=== PATIENT | female | born 1980 | race Caucasian/White ===

== ENCOUNTER → 2017-09-30 13:33 | Outpatient (CLI) | payer OTHER, SELFPAY ==
[2017-10-06 08:28] LABS: HPV Reflexed? NOT INDICATED
== END ==
PROVIDERS: Visit Provider Obstetrics & Gynecology
DX: Z12.4 Encounter for screening for malignant neoplasm of cervix (principal)
CPT/HCPCS: 88175; G0145

== ENCOUNTER → 2019-03-30 13:41 | Outpatient (CLI) | payer OTHER, SELFPAY ==
[2019-04-04 07:07] LABS: Age Gdln ACOG Testing 30-65 (.)
[2019-04-04 09:47] LABS: HPV APTIMA, High Risk Negative (Negative); HPV Reflexed? YES, CHARGE PATIENT
== END ==
PROVIDERS: Visit Provider Obstetrics & Gynecology
DX: Z12.4 Encounter for screening for malignant neoplasm of cervix (principal)
CPT/HCPCS: 87624; 88175; G0145

== ENCOUNTER → 2022-05-09 | Outpatient (CLI) | payer OTHER, SELFPAY ==
--- NOTE | 2022-05-09 08:11 | BI_ITS ---
MAMMOGRAPHY - BILATERAL SCREENING REASON FOR EXAM: Female, 41 years old. Routine annual screening examination. PERTINENT HISTORY: Non-contributory. TECHNIQUE: Digital bilateral breast paula (3D mammographic acquisition) in the CC and MLO projections. 2-D mediolateral oblique (MLO) and craniocaudad (CC) views of both breasts were obtained. CAD: Full Field Digital Mammography with Computer Added Detection was performed. COMPARISON: None. Baseline examination. FINDINGS: Breast Composition: The breasts are heterogeneously dense, which may obscure small masses. There are no dominant masses or suspicious calcifications. Small benign-appearing bilateral axillary lymph nodes. No other significant abnormalities are identified. BI/SCRN MAMM (CAD)W/PAULA BILAT IMPRESSION: Negative screening mammogram. Yearly followup mammogram recommended. (A) ASSESSMENT CATEGORY: BIRADS Category 2: Benign. A letter regarding these results will be sent to the patient by the facility within 30 days. Approximately 10% of breast cancers are not detected by mammography. A normal mammogram should not delay biopsy of a clinically suspicious abnormality. [id number] Electronically Signed: Candido Yip MD at 9:05 EST ,
== END | disposition home or self-care (01) ==
LOC: OPBI 08:09
PROVIDERS: PCP Family Medicine; Visit Provider Student in an Organized Health Care Education/Training Program
DX: Z12.31 Encounter for screening mammogram for malignant neoplasm of breast (principal)
CPT/HCPCS: 77063; 77067

== ENCOUNTER → 2023-04-20 | Outpatient (CLI) | payer BC, SELFPAY ==
--- OUTSIDE RECORDS SUMMARY | 2023-04-20 10:52 | XMS RPT_ITS | CCD ---
Author Name Unknown Address [address] [place] [address] Organization [facility] Care Team Providers Care Bonding Molder Name Role Phone Nicolle RAYMOND, Rae Guerrier Primary Care Provider SIOBHAN WOLFE Admitting Unavaila ble JOLLIFF, RAE SIRIA Primary Care Unavailable SIOBHAN WOLFE Referring Unavaila ble JOLLIFF, RAE SIRIA Primary Care Unavailable SIOBHAN WOLFE Attending Unavaila ble SIOBHAN WOLFE Referring Unavaila ble SIOBHAN WOLFE Admitting Unavaila ble JOLLIFF, RAE SIRIA Primary Care Unavailable CRISTYLLIFF, RAE SIRIA Primary Care Unavailable SIOBHAN WOLFE Attending Unavaila ble SIOBHAN WOLFE Admitting Unavaila ble JOLLIFF, RAE SIRIA Primary Care Unavailable SIOBHAN WOLFE Referring Unavaila ble SIOBHAN WOLFE Attending Unavaila ble JOLLIFF, RAE SIRIA Primary Care Unavailable SIOBHAN WOLFE Admitting Unavaila ble JOLLIFF, RAE SIRAI Primary Care Unavailable SIOBHAN WOLFE Referring Unavaila ble SIOBHAN WOLFE Attending Unavaila ble JOLLIFF, RAE SIRIA Primary Care Unavailable SIOBHAN WOLFE Admitting Unavaila ble JOLLIFF, RAE SIRIA Primary Care Unavailable SIOBHAN WOLFE Referring Unavaila ble JOLLIFF, RAE SIRIA Primary Care Unavailable SIOBHAN WOLFE Attending Unavaila ble JOLLIFF, RAE SIRIA Primary Care Unavailable SIOBHAN WOLFE Attending Unavaila ble SIOBHAN WOLFE Admitting Unavaila ble JOLLIFF, RAE SIRIA Primary Care Unavailable SIOBHAN WOLFE Referring Unavaila ble YOHANA SANTOS Attending Unavailable JOLLIFF, [facility] Primary Care Unavailable SIOBHAN WOLFE Admitting Unavaila ble GEREMIAS CLARK Attending Unavailable SIOBHAN WOLFE Referring Unavaila ble JOLLIFF, [facility] Primary Care Unavailable SIOBHAN WOLFE Admitting Unavaila ble YOHANA SANTOS Attending Unavailable SIOBHAN WOLFE Referring Unavaila ble JOLLIFF, [facility] Primary Care Unavailable SIOBHAN WOLFE Admitting Unavaila ble YOHANA SANTOS Attending Unavailable SIOBHAN WOLFE Referring Unavaila ble JOLLIFF, [facility] Primary Care Unavailable SIOBHAN WOLFE Admitting Unavaila ble GRAEME, ZACHARY Attending Unavailable SIOBHAN WOLFE Referring Unavaila ble WOLFESIOBHAN CAMARENA Admitting Unavaila ble GRAEME, ZACHARY Attending Unavailable [facility], [facility] Primary Care Unavailable SIOBHAN WOLFE Referring Unavaila ble SIOBHAN WOLFE Admitting Unavaila ble [facility]IFF, [facility]available ALAYNA DODD Attending Unavailable SIOBHAN WOLFE Referring Unavaila ble SIOBHAN WOLFE Admitting Unavaila ble YOUNG, ZACHARY Attending Unavailable NICOLLE, [facility] Primary Care Unavailable SIOBHAN WOLFE Referring Unavaila ble Medications Current Medications Medication Drug Class(es) Dates Sig (Normalized) Sig (Original) ibuprofen 200 mg oral tablet (12 sources) Nonsteroidal Anti-inflammatory Drug take 1 tablet by mouth every six hours as needed for pain ibuprofen (ADVIL,MOTRIN) 200 MG tablet Take 1 (one) tablet (200 mg total) by mouth every 6 (six) hours as needed for pain . 0 Active methylPREDNISolone (1 source) Corticosteroid Start: 3 End: 3 methylPREDNISolone (MEDROL DOSEPACK) 4 mg tablet Follow package directions . 21 tablet 0 02/12/2023 02/18/2023 Active Problems Active Problems Problem Classification Problem Date Documented Da te Episodic/Chronic Fracture of lower limb (20 sources) Fracture of talus; Translations: [Displaced avulsion fracture (chip fracture) of right talus, subsequent encounter for fracture with routine healing] Onset: 12-11-2022 11-27-2022 Episodic Sprains and strains (20 sources) Supination-internal rotation injury of ankle; Translations: [Sprain of unspecified ligament of right ankle, sequela] Onset: 02-12-2023 02-12-2023 Episodic Past or Other Problems Problem Classification Problem Date Documented Da te Episodic/Chronic Other connective tissue disease (2 sources) Pain in right foot; Translations: [Pain in right foot] Onset: 11-27-2022 Episodic Results Test Name Value Interpretation Reference Range Facil ity Vital Signs Date Time Vital Sign Value Performing Clinician Faci lity 03-12-2023 15:27-0500 Body temperature 98.2 [degF] Siobhan Wolfe DPM Work Phone: [facility] 03-12-2023 15:27-0500 Diastolic blood pressure 68 mm[Hg] Siobhan Wolfe DPM Work Phone: [facility] 03-12-2023 15:27-0500 Heart rate 82 /min Siobhan Wolfe DPM Work Phone: [facility] 03-12-2023 15:27-0500 Systolic blood pressure 104 mm[Hg] Siobhan Wolfe DPM Work Phone: [facility] 02-12-2023 09:01-0500 Body temperature 98.1 [degF] Siobhan Wolfe DPM Work Phone: [facility] 02-12-2023 09:01-0500 Diastolic blood pressure 71 mm[Hg] Siobhan Wolfe DPM Work Phone: [facility] 02-12-2023 09:01-0500 Heart rate 88 /min Siobhan Wolfe DPM Work Phone: [facility] 02-12-2023 09:01-0500 Systolic blood pressure 101 mm[Hg] Siobhan Wolfe DPM Work Phone: [facility] 01-01-2023 16:08-0400 Body temperature 98.1 [degF] Siobhan Wolfe DPM Work Phone: [facility] 01-01-2023 16:08-0400 Diastolic blood pressure 69 mm[Hg] Siobhan Wolfe DPM Work Phone: [facility] 01-01-2023 16:08-0400 Heart rate 78 /min Siobhan Wolfe DPM Work Phone: [facility] 01-01-2023 16:08-0400 Systolic blood pressure 104 mm[Hg] Siobhan Wolfe DPM Work Phone: [facility] 12-11-2022 10:22-0400 Body temperature 98.71 [degF] Siobhan Wolfe DPM Work Phone: [facility] 12-11-2022 10:22-0400 Diastolic blood pressure 71 mm[Hg] Siobhan Wolfe DPM Work Phone: [facility] 12-11-2022 10:22-0400 Heart rate 77 /min Siobhan Wolfe DPM Work Phone: [facility] 12-11-2022 10:22-0400 Systolic blood pressure 102 mm[Hg] Siobhan Wolfe DPM Work Phone: [facility] 11-27-2022 10:19-0400 Body temperature 98.1 [degF] Siobhan Wolfe DPM Work Phone: [facility] 11-27-2022 10:19-0400 Diastolic blood pressure 78 mm[Hg] Siobhan Wolfe DPM Work Phone: [facility] 11-27-2022 10:19-0400 Heart rate 98 /min Siobhan Wolfe DPM Work Phone: [facility] 11-27-2022 10:19-0400 Systolic blood pressure 116 mm[Hg] Siobhan Wolfe DPM Work Phone: [facility] Encounters Encounter Date Encounter Type Care Provider Facility Start: 03-16-2023 End: 03-20-2023 ambulatory SIOBHAN WOLFE [facility] Start: 03-16-2023 End: 03-16-2023 ambulatory Siobhan Wolfe DPM Work Phone: [facility] Plan of Treatment Date Care Activity Detail Author Start: 03-16-2023 End: 03-16-2023 ambulatory 03/16/2023 7:45 AM EST Treatment [facility] [address] [place] [address] Siobhan Wolfe, BLANCHE [address] [place] [address] Yohana Santos PTA [facility] Start: 03-12-2023 End: 03-12-2023 ambulatory [facility] Start: 03-12-2023 End: 03-12-2023 Patient encounter procedure 03/12/2023 3:30 PM EST Office Visit [facility] [address] [place] [address] Siobhan Wolfe DPM [address] [place] [address] [facility] Start: 03-10-2023 End: 03-10-2023 ambulatory 03/10/2023 7:45 AM EST Treatment [facility] [address] [place] [address] Siobhan Wolfe, BLANCHE [address] [place] [address] Alayna Dodd PTA Discharge Disposition: Home [facility] Start: 03-05-2023 End: 03-05-2023 ambulatory 03/05/2023 11:30 AM EST Treatment [facility] [address] [place] [address] Siobhan Wolfe DPM [address] [place] [address] Zachary Young PTA [facility] Start: 03-03-2023 End: 03-03-2023 ambulatory 03/03/2023 7:45 AM EST Treatment [facility] [address] [place] [address] Siobhan Wolfe, BLANCHE [address] [place] [address] Zachary Young PTA [facility] Start: 02-27-2023 End: 02-27-2023 ambulatory 02/27/2023 7:00 AM EST Treatment [facility] [address] [place] [address] Siobhan Wolfe, HELENM [address] [place] [address] Yohana Santos PTA [facility] Start: 02-19-2023 End: 02-19-2023 ambulatory 02/19/2023 8:30 AM EST Evaluation [facility] [address] [place] [address] Siobhan Wolfe, BLANCHE [address] [place] [address] Geremias Clark, PT Discharge Disposition: Home [facility] Start: 01-15-2023 End: 01-15-2023 Patient encounter procedure 01/15/2023 4:00 PM EST Office Visit [facility] [address] [place] [address] Siobhan Wolfe DPM [address] [place] [address] [facility] Start: 01-01-2023 End: 01-01-2023 Patient encounter procedure 01/01/2023 4:15 PM EDT Office Visit [facility] [address] [place] [address] Siobhan Wolfe DPM [address] [place] [address] [facility] Start: 12-16-2022 History and physical examination, annual for health maintenance Wellness Visit [facility] Start: 12-11-2022 End: 12-11-2022 Patient encounter procedure 12/11/2022 10:00 AM EDT Office Visit [facility] [address] [place] [id number] Siobhan Wolfe, BLANCHE [address] [place] [address] [facility] Start: 11-07-2022 COVID-19 Vaccine () COVID-19 Vaccine () [facility] Start: 11-07-2022 Influenza vaccination Sequential Influenza Vaccine (#1) [facility] Start: 2020 Screening for malignant neoplasm of breast Mammogram [facility] Start: 2001 Screening for malignant neoplasm of cervix Pap Smear [facility] Start: 1998 Hepatitis C screening Hepatitis C Screening [facility] Start: 12-15-1995 HIV screening HIV Screening [facility] Start: 1992 Depression screening using PHQ-9 (Patient Health Questionnaire 9) score Depression Screening (PHQ-2/9) [facility] Start: 06-14-1981 COVID-19 Vaccine (#1) COVID-19 Vaccine (#1) [facility] Start: 1980 Tetanus vaccination Tetanus: Every 10yrs [facility] Payers Date Payer Category Payer Unknown [id number] 2022 Unknown [id number] 2022 Unknown [id number] 1980 Unknown [id number] 2.16. [id number] 1980 Unknown [id number] 2.16. [id number] 1980 Unknown [id number] 2.16. [id number] 1980 Unknown [id number] 2.16. 840.1.962671.3.579.2. 1980 Unknown [id number] 2.16. 840.1.668113.3.579.2.903 1980 Unknown [id number] 2.16. 840.1.174293.3.579.2 1980 Unknown [id number] 2.16. 840.1.768814.3.579.2.90 1980 Unknown [id number] 2.16. 840.1.952405.3.579.2 1980 Unknown [id number] 2.16. 840.1.068560.3.579.2 1980 Unknown [id number] 2.16 840.1.041539.3.579.2 1980 Unknown [id number] 2.16. 840.1.455526.3.579.2. 1980 Unknown [id number] 2.16 840.1.559132.3.579.2 1980 Unknown [id number] 2.16. 840.1.003122.3.579.2. 1980 Unknown [id number] 2.16 840.1.301543.3.579.2. 1980 Unknown [id number] 2.16. 840.1.813078.3.579.2. 1980 Unknown [id number] 2.16. 840.1.286698.3.579.2. 1980 Unknown [id number] 2.16. 840.1.102085.3.579.2.90 1980 Unknown [id number] 2.16 840.1.362575.3.579.2 1980 Unknown [id number] 2.16. 840.1.218335.3.579.2.903 Unknown [id number] Social History Date Type Detail Facility Start: 11-27-2022 [facility] Start: 11-27-2022 Tobacco use and exposure Smokeless t obacco non-user [facility] Start: 11-27-2022 End: 03-16-2023 Alcohol intake Current drinker of alcohol (finding) [facility] Start: 11-27-2022 Alcohol Comment occasionally [facility] Start: 1980 [facility] Start: 11-27-2022 End: 03-10-2023 Gender identity Not on file [facility] Start: 11-27-2022 End: 03-10-2023 History of Social function [facility] Clinical Notes 11-27-2022 to 03-16-2023 Yohana Santos, HOUSING COUNSELOR - 03/16/2023 7:45 AM Siobhan Nunes, DP - 03/12/2023 3:54 PM Alayna Alcaraz, HOUSING COUNSELOR - 03/10/2023 7:45 AM Zachary Jennings, HOUSING COUNSELOR - 03/05/2023 11:30 AM EST Note Date & Type Note Facility 03-16-2023 History of Presen t illness Narrative [facility] TREAT[facility] NOTE Today's Date 03/16/2023 Patient Name: Pietro Hendrix Date of : 1980 Current Visit #: 7 Authorized Visits: 7 Case Name: Right Ankle Sprain w/ Avulsion Fracture History: Pre-Treatment Pain Scale: 0 Symptoms: gradually improved Functional Diagnosis: 1. Closed displaced avulsion fracture of right talus, initial encounter 2. Inversion sprain of right ankle, initial encounter 3. Sprain of anterior talofibular ligament of right ankle, initial encounter Clinical Information: Subjective: Pt reports ankle was more sore after last visit but not enough Objective FOTO Score - 03/16/23 0803 OTHER FOTO Score 72 Reviewed HEP with good understanding. Ankle/Foot Right Ankle/Foot Range of Motion: Dorsiflexion Active: 12 Plantar Flexion Active: 55 Inversion Active: 22 Eversion Active: 18 Muscle Strength: DorsiFlexion: 5 Plantar Flexion: 5 Inversion: 5 Eversion: 5 Treatments: Physical Therapy Exercise Log - 03/16/23 0745 OTHER Precautions/Contraindications Supervising PT: Kiet Jaeger Visit 7 7:45 - 8:25 [employer] insurance Therapeutic Exercise (80931) Intervention Standing gastroc/soleus stretches 20 sec x3 Parameters Standing Heel raises x20 (2 up 1 down) x 10 Intervention Kneeling ankle Creative Arts Therapist x 1 min Parameters Heel taps 4'' 2 x 20 Intervention squats - x20 Heels elevated x 20 Parameters SLS with 3 way LE reach 2x10 Intervention Trampoline bounce 2x1min Parameters BOUS step ups, lunges x25 (quick and controlled) Parameters Access Code: [email or web address] URL: [email or web address] Date: 02/19/2023 Prepared by: Geremias Clark Exercises - Long Sitting Calf Stretch with Strap - 1-2 x daily - 3 reps - 20 seconds hold - Long Sitting Soleus Stretch on Bolster with Strap - 1-2 x daily - 3 reps - 20 seconds hold - Seated Ankle Alphabet - 1-2 x daily - 1 reps - Towel Scrunches - 1-2 x daily - 20 reps - Ankle Inversion Eversion Towel Slide - 1-2 x daily - 10 reps - Seated Ankle Eversion with Resistance - 1-2 x daily - 10-15 reps - Self-Resisted Ankle Dorsiflexion - 1-2 x daily - 10-15 reps - Seated Ankle Inversion with Resistance - 1-2 x daily - 10-15 reps - Seated Ankle Plantarflexion with Resistance - 2 x daily - 10-15 reps PT Treatment Times Therex Total Time 40 Direct Treatment Time 40 Total Treatment Time 40 Goals: Physical Therapy Ortho Goals: MOBILITY: Patient will be able to ambulate for 1 hour in community without difficulty in 4 weeks. MOBILITY: Patient will be able to ambulate on uneven surfaces without difficulty in 4 weeks. MOBILITY: Patient will be able to ascend/descend stairs reciprocally without difficulty in 4 weeks. IMPAIRMENT: Improve pain from 4/10 to <2/10 during prolonged walking and negotiating uneven surfaces in 4 weeks IMPAIRMENT: Improve AROM of Right Ankle Inversion and Eversion by at least 10 degrees in 4 weeks. OTHER: Patient will increase FOTO score from 55 to at least 65 to show MDC/MCII and expected functional outcome in 4 weeks. OTHER: Patient will be able to properly demonstrate independence with HEP in 1 week. Patient Education: Quality of movement with patient demonstrated understanding. Post-Treatment Pain Scale: 0 Assessment: Patient had an expected response to treatment. Skilled Intervention demonstrated by modifications of treatment per exercise log including assessment of patient's response and safety interventions per exercise log. Progress towards goals as expected. Plan for Next Visit: Discharge Yohana Santos PTA STATE LICENSE, [id number] documented in this encounter [facility] 03-12-2023 History of Presen t illness Narrative Patient: Pietro Hendrix Date of : 1980 (42 y.o.) PCP: Rae Valverde MD Procedures ASSESSMENT/PLAN: Pietro Hendrix 42 y.o. female with history of old avulsion fracture of the talar neck due to inversion ankle sprain of the right lower extremity doing much better. Plan: Patient was advised to continue with some home exercises of stretching the Achilles tendon and everting the foot to strengthen the peroneal tendons. Patient is to call if she has any recurrent symptoms or instability. Assessment & plan notes cannot be loaded without a specified hospital service. SUBJECTIVE: History Since Last Visit: Patient is a 42-year-old female who sprained her right ankle on some bleachers this past fall. Patient suffered an avulsion fracture fragment of the right talus. Patient has worn an ankle brace and been through physical therapy with improvement. Patient feels she is 75 to 80% improved from before. Review of Systems: OBJECTIVE: Physical Examination: Integument-skin is warm dry and supple on the right foot. Neuro-intact right foot Musculoskeletal-there is a mild anterior drawer sign of the right ankle joint. Patient has no pain with ankle passive range of motion. Patient can arely the right foot without difficulty. There is minimal to no pain over the anterior talofibular or calcaneofibular ligaments of the right ankle. Vascular-DP PT pulse are palpable on the right foot. BP 104/68 (BP Location: Right arm, Patient Position: Sitting, BP Cuff Size: Adult) Pulse 82 Temp 98.2 F (36.8 C) (Infrared) LMP 02/01/2023 (Approximate) Laboratory and Additional Data Reviewed: Reviewed:[id number]} XR Foot Right 3+ Views (Standard) X-rays 3 views right foot: The avulsion fracture of the talar neck appears to be healed. No other fracture or dislocation noted. If further concern for ligament injury is needed an MRI would be recommended. documented in this encounter [facility] 03-10-2023 History of Presen t illness Narrative [facility] TREAT[facility] NOTE Today's Date 03/10/2023 Patient Name: Pietro Hendrix Date of : 1980 Current Visit #: 6 Authorized Visits: 7 Case Name: Right Ankle Sprain w/ Avulsion Fracture History: Pre-Treatment Pain Scale: 2 Symptoms: stabilized Functional Diagnosis: 1. Closed displaced avulsion fracture of right talus, initial encounter 2. Inversion sprain of right ankle, initial encounter 3. Sprain of anterior talofibular ligament of right ankle, initial encounter Clinical Information: Subjective: She was on her feet a lot yesterday and by the end of the day was very sore. Objective good tolerance to PRE's and stretches this visit Treatments: Physical Therapy Exercise Log - 03/10/23 1040 OTHER Precautions/Contraindications Supervising PT: Kiet Notes Visit 5 7:45-8:25 [employer] insurance Vitals Performed ex's in barefoot Therapeutic Exercise (73377) Intervention Standing gastroc/soleus stretches 20 sec x3 Parameters ant and post tibialis stretch - 20 sec x3 Intervention Kneeling ankle Creative Arts Therapist x 2 min Parameters Standing Heel raises (LLE on 2'' box to increase RLE wbing) x20 Intervention squats - x10 Heels elevated x 10 Parameters standing hip flex, abd Yellow miniband Airex - x10 B Intervention Heel taps 4'' 2 x 20 Parameters SLS with 3 way LE reach 2x10 Intervention Lat, retro amb 30'x2 each Parameters BOUS step ups - x10 fwd Parameters Access Code: [email or web address] URL: [email or web address] Date: 02/19/2023 Prepared by: Geremias Clark Exercises - Long Sitting Calf Stretch with Strap - 1-2 x daily - 3 reps - 20 seconds hold - Long Sitting Soleus Stretch on Bolster with Strap - 1-2 x daily - 3 reps - 20 seconds hold - Seated Ankle Alphabet - 1-2 x daily - 1 reps - Towel Scrunches - 1-2 x daily - 20 reps - Ankle Inversion Eversion Towel Slide - 1-2 x daily - 10 reps - Seated Ankle Eversion with Resistance - 1-2 x daily - 10-15 reps - Self-Resisted Ankle Dorsiflexion - 1-2 x daily - 10-15 reps - Seated Ankle Inversion with Resistance - 1-2 x daily - 10-15 reps - Seated Ankle Plantarflexion with Resistance - 2 x daily - 10-15 reps PT Treatment Times Therex Total Time 38 Direct Treatment Time 38 Total Treatment Time 38 Goals: Physical Therapy Ortho Goals: MOBILITY: Patient will be able to ambulate for 1 hour in community without difficulty in 4 weeks. MOBILITY: Patient will be able to ambulate on uneven surfaces without difficulty in 4 weeks. MOBILITY: Patient will be able to ascend/descend stairs reciprocally without difficulty in 4 weeks. IMPAIRMENT: Improve pain from 4/10 to <2/10 during prolonged walking and negotiating uneven surfaces in 4 weeks IMPAIRMENT: Improve AROM of Right Ankle Inversion and Eversion by at least 10 degrees in 4 weeks. OTHER: Patient will increase FOTO score from 55 to at least 65 to show MDC/MCII and expected functional outcome in 4 weeks. OTHER: Patient will be able to properly demonstrate independence with HEP in 1 week. Patient Education: Quality of movement with patient demonstrated understanding. Post-Treatment Pain Scale: 2 Assessment: Patient had an expected response to treatment. Skilled Intervention demonstrated by modifications of treatment per exercise log including increased load and safety interventions per exercise log. Progress towards goals as expected. Plan for Next Visit: Treatment Visit with focus on stretches Alayna Dodd PTA STATE LICENSE, [id number] documented in this encounter [facility] 03-05-2023 History of Presen t illness Narrative [facility] TREAT[facility] NOTE Today's Date 03/05/2023 Patient Name: Pietro Hendrix Date of : 1980 Current Visit #: 5 Authorized Visits: 7 Case Name: Right Ankle Sprain w/ Avulsion Fracture History: Pre-Treatment Pain Scale: 1 Symptoms: stabilized Functional Diagnosis: 1. Closed displaced avulsion fracture of right talus with routine healing, subsequent encounter 2. Inversion sprain of right ankle, subsequent encounter 3. Sprain of anterior talofibular ligament of right ankle, subsequent encounter Clinical Information: Subjective: Pt reports she was quite sore after LV but sx's returned to normal by the next day, min sx's today Objective Treatments: Physical Therapy Exercise Log - 03/05/23 1120 OTHER Precautions/Contraindications Supervising PT: Kiet Notes Visit 4 [phone] [employer] insurance Vitals Performed ex's in barefoot Therapeutic Exercise (67277) Intervention Standing gastroc/soleus stretches 20 sec x3 Parameters ant and post tibialis stretch - 20 sec x3 Intervention Kneeling ankle Creative Arts Therapist x 2 min Parameters Standing Heel raises (LLE on 2'' box to increase RLE wbing) x20 Intervention squats - x10 Heels elevated x 10 Parameters standing hip flex, abd Yellow miniband Airex - x10 B Intervention Heel taps 4'' 2 x 20 Parameters SLS with 3 way LE reach 2x10 Intervention Lat, retro amb 30'x2 each Parameters BOUS step ups - x10 fwd Parameters Access Code: [email or web address] URL: [email or web address] Date: 02/19/2023 Prepared by: Geremias Clark Exercises - Long Sitting Calf Stretch with Strap - 1-2 x daily - 3 reps - 20 seconds hold - Long Sitting Soleus Stretch on Bolster with Strap - 1-2 x daily - 3 reps - 20 seconds hold - Seated Ankle Alphabet - 1-2 x daily - 1 reps - Towel Scrunches - 1-2 x daily - 20 reps - Ankle Inversion Eversion Towel Slide - 1-2 x daily - 10 reps - Seated Ankle Eversion with Resistance - 1-2 x daily - 10-15 reps - Self-Resisted Ankle Dorsiflexion - 1-2 x daily - 10-15 reps - Seated Ankle Inversion with Resistance - 1-2 x daily - 10-15 reps - Seated Ankle Plantarflexion with Resistance - 2 x daily - 10-15 reps PT Treatment Times Therex Total Time 46 Direct Treatment Time 46 Total Treatment Time 46 Goals: Physical Therapy Ortho Goals: MOBILITY: Patient will be able to ambulate for 1 hour in community without difficulty in 4 weeks. MOBILITY: Patient will be able to ambulate on uneven surfaces without difficulty in 4 weeks. MOBILITY: Patient will be able to ascend/descend stairs reciprocally without difficulty in 4 weeks. IMPAIRMENT: Improve pain from 4/10 to <2/10 during prolonged walking and negotiating uneven surfaces in 4 weeks IMPAIRMENT: Improve AROM of Right Ankle Inversion and Eversion by at least 10 degrees in 4 weeks. OTHER: Patient will increase FOTO score from 55 to at least 65 to show MDC/MCII and expected functional outcome in 4 weeks. OTHER: Patient will be able to properly demonstrate independence with HEP in 1 week. Patient Education: Verbal HEP with patient verbalized understanding. Post-Treatment Pain Scale: 1 Assessment: Patient had an expected response to treatment. Skilled Intervention demonstrated by modifications of treatment per exercise log including assessment of patient's response and safety interventions per exercise log. Progress towards goals as expected. Plan for Next Visit: Treatment Visit with focus on progressing as tolerated Zachary Young PTA STATE LICENSE, [id number] documented in this encounter [facility] 03-03-2023 History of Presen t illness Narrative [facility] DA[facility] TREATMENT NOTE Today's Date 03/03/2023 Patient Name: Pietro Hendrix Date of : 1980 Current Visit #: 4 Authorized Visits: 7 Case Name: Right Ankle Sprain w/ Avulsion Fracture History: Pre-Treatment Pain Scale: 1 Symptoms: stabilized Functional Diagnosis: 1. Closed displaced avulsion fracture of right talus with routine healing, subsequent encounter 2. Inversion sprain of right ankle, subsequent encounter 3. Sprain of anterior talofibular ligament of right ankle, subsequent encounter Clinical Information: Subjective: Pt reports low pain today and min soreness after LV, states she is usually sore the day of with min sx's the next day Objective Progressed wbing ex's today and reviewed progressing wbing stretches Treatments: Physical Therapy Exercise Log - 03/03/23 0736 OTHER Precautions/Contraindications Supervising PT: Kiet Notes Visit [phone] [employer] insurance Vitals Performed ex's in barefoot 03/03 Therapeutic Exercise (87436) Intervention Standing gastroc/soleus stretches 20 sec x3 Parameters ant and post tibialis stretch - 20 sec x3 Intervention Kneeling ankle Creative [employer] Therapist x 2 min Parameters Standing Heel raises (LLE on 2'' box to increase RLE wbing) x20 Intervention squats - x10 Heels elevated x 10 Parameters standing hip flex, abd Yellow miniband - x10 B (no UE support) add airex NV Intervention Heel taps 4''x 20 Parameters BOUS step ups - x10 fwd, lat BOSU lunges - x15 alt Intervention lat ambulation NT Parameters 3 way heel raises on shuttle NT Intervention -- Parameters -- Intervention -- Parameters Access Code: [email or web address] URL: [email or web address] Date: 02/19/2023 Prepared by: Geremias Clark Exercises - Long Sitting Calf Stretch with Strap - 1-2 x daily - 3 reps - 20 seconds hold - Long Sitting Soleus Stretch on Bolster with Strap - 1-2 x daily - 3 reps - 20 seconds hold - Seated Ankle Alphabet - 1-2 x daily - 1 reps - Towel Scrunches - 1-2 x daily - 20 reps - Ankle Inversion Eversion Towel Slide - 1-2 x daily - 10 reps - Seated Ankle Eversion with Resistance - 1-2 x daily - 10-15 reps - Self-Resisted Ankle Dorsiflexion - 1-2 x daily - 10-15 reps - Seated Ankle Inversion with Resistance - 1-2 x daily - 10-15 reps - Seated Ankle Plantarflexion with Resistance - 2 x daily - 10-15 reps PT Treatment Times Therex Total Time 42 Direct Treatment Time 42 Goals: Physical Therapy Ortho Goals: MOBILITY: Patient will be able to ambulate for 1 hour in community without difficulty in 4 weeks. MOBILITY: Patient will be able to ambulate on uneven surfaces without difficulty in 4 weeks. MOBILITY: Patient will be able to ascend/descend stairs reciprocally without difficulty in 4 weeks. IMPAIRMENT: Improve pain from 4/10 to <2/10 during prolonged walking and negotiating uneven surfaces in 4 weeks IMPAIRMENT: Improve AROM of Right Ankle Inversion and Eversion by at least 10 degrees in 4 weeks. OTHER: Patient will increase FOTO score from 55 to at least 65 to show MDC/MCII and expected functional outcome in 4 weeks. OTHER: Patient will be able to properly demonstrate independence with HEP in 1 week. Patient Education: Verbal HEP with patient verbalized understanding. Post-Treatment Pain Scale: 1 Assessment: Patient had an expected response to treatment. Pt very challenged with Wbing DF on stairs, able to complete heel taps with reduced ROM and no increased sx's Skilled Intervention demonstrated by modifications of treatment per exercise log including assessment of patient's response and safety interventions per exercise log. Progress towards goals as expected. Plan for Next Visit: Treatment Visit with focus on progressing as tolerated Zachary Young PTA STATE LICENSE, [id number] documented in this encounter [facility] 02-27-2023 History of Presen t illness Narrative [facility] TREATMENT NOTE Today's Date 02/27/2023 Patient Name: Pietro Hendrix Date of : 1980 Current Visit #: 3 Authorized Visits: 7 Case Name: Right Ankle Sprain w/ Avulsion Fracture History: Pre-Treatment Pain Scale: 4 Symptoms: gradually improved Functional Diagnosis: 1. Closed displaced avulsion fracture of right talus, initial encounter 2. Inversion sprain of right ankle, initial encounter 3. Sprain of anterior talofibular ligament of right ankle, initial encounter Clinical Information: Subjective: Pt reports feeling good after last session but later in day pain gets worse. Compliant with HEP and makes ankle feel good for a while before pain returns. Objective Pt responding well to treatment and stability ex, pain decreases and mobility increases with ex. Tolerated higher level ex and stability ex. Treatments: Physical Therapy Exercise Log - 02/27/23 0656 OTHER Precautions/Contraindications Supervising PT: Kiet Notes Visit 2: 6:57 - 7:40 [employer] insurance Therapeutic Exercise (71770) Intervention gastroc/soleus stretches 20 sec x3 Parameters ant and post tibialis stretch - 20 sec x3 Intervention BOSU lunges - x15 alt Parameters BOUS step ups - x10 fwd, lat Intervention 3 way Ankle drivers with mcdermott band - 5 sec x10 Parameters toe elevated heel raises - x10 Intervention squats - x10 Parameters heel raises with ball squeeze between ankles - x10 Intervention lat ambulation - 15' x1 lap with yellow minin banc=d around toes. Parameters standing hip flex, abd on airex with Yellow miniband - x10 B Intervention 3 way heel raises on shuttle - x10 50# Parameters BTB resisted 4-way ankle - x20 Parameters Access Code: [email or web address] URL: [email or web address] Date: 02/19/2023 Prepared by: Geremias Clark Exercises - Long Sitting Calf Stretch with Strap - 1-2 x daily - 3 reps - 20 seconds hold - Long Sitting Soleus Stretch on Bolster with Strap - 1-2 x daily - 3 reps - 20 seconds hold - Seated Ankle Alphabet - 1-2 x daily - 1 reps - Towel Scrunches - 1-2 x daily - 20 reps - Ankle Inversion Eversion Towel Slide - 1-2 x daily - 10 reps - Seated Ankle Eversion with Resistance - 1-2 x daily - 10-15 reps - Self-Resisted Ankle Dorsiflexion - 1-2 x daily - 10-15 reps - Seated Ankle Inversion with Resistance - 1-2 x daily - 10-15 reps - Seated Ankle Plantarflexion with Resistance - 2 x daily - 10-15 reps PT Treatment Times Therex Total Time 43 Direct Treatment Time 43 Total Treatment Time 43 Goals: Physical Therapy Ortho Goals: MOBILITY: Patient will be able to ambulate for 1 hour in community without difficulty in 4 weeks. MOBILITY: Patient will be able to ambulate on uneven surfaces without difficulty in 4 weeks. MOBILITY: Patient will be able to ascend/descend stairs reciprocally without difficulty in 4 weeks. IMPAIRMENT: Improve pain from 4/10 to <2/10 during prolonged walking and negotiating uneven surfaces in 4 weeks IMPAIRMENT: Improve AROM of Right Ankle Inversion and Eversion by at least 10 degrees in 4 weeks. OTHER: Patient will increase FOTO score from 55 to at least 65 to show MDC/MCII and expected functional outcome in 4 weeks. OTHER: Patient will be able to properly demonstrate independence with HEP in 1 week. Patient Education: Quality of movement with patient demonstrated understanding. Post-Treatment Pain Scale: 2 Assessment: Patient had an expected response to treatment. Skilled Intervention demonstrated by modifications of treatment per exercise log including increased load and safety interventions per exercise log. Progress towards goals as expected. Plan for Next Visit: Treatment Visit with focus on strengthening and stability progression Yohana Santos PTA STATE LICENSE, [id number] documented in this encounter [facility] 02-25-2023 History of Presen t illness Narrative [facility] TREAT[facility] NOTE Today's Date 02/25/2023 Patient Name: Pietro Hendrix Date of : 1980 Current Visit #: 2 Authorized Visits: 7 Case Name: Right Ankle Sprain w/ Avulsion Fracture History: Pre-Treatment Pain Scale: 3 Symptoms: gradually improved Functional Diagnosis: 1. Closed displaced avulsion fracture of right talus, initial encounter 2. Inversion sprain of right ankle, initial encounter 3. Sprain of anterior talofibular ligament of right ankle, initial encounter Clinical Information: Subjective: Pt reports compliance with HEP and stated some pain with going down steps and uneven surfaces. Has discomfort with Eversion on lat side of foot below ankle. Objective Treatments: Physical Therapy Exercise Log - 02/25/23 0702 OTHER Precautions/Contraindications Supervising PT: Kiet Notes Visit 1: 7:01 - 7:50 [employer] insurance Therapeutic Exercise ([id number]) Intervention gastroc/soleus stretches 20 sec x3 Parameters ant and post tibialis stretch - 20 sec x3 Intervention BOSU lunges - x15 alt Parameters BOUS step ups - x10 fwd, lat Intervention 3 way Ankle drivers with mcdermott band - 5 sec x10 Parameters toe elevated heel raises - x10 Intervention squats - x10 Parameters heel raises with ball squeeze between ankles - x10 Intervention GTB resisted 4-way ankle - x20 Parameters ankle alphabet - NT Intervention towel scrunches / towel in/eversion - NT Parameters Access Code: [email or web address] URL: [email or web address] Date: 02/19/2023 Prepared by: Geremias Clark Exercises - Long Sitting Calf Stretch with Strap - 1-2 x daily - 3 reps - 20 seconds hold - Long Sitting Soleus Stretch on Bolster with Strap - 1-2 x daily - 3 reps - 20 seconds hold - Seated Ankle Alphabet - 1-2 x daily - 1 reps - Towel Scrunches - 1-2 x daily - 20 reps - Ankle Inversion Eversion Towel Slide - 1-2 x daily - 10 reps - Seated Ankle Eversion with Resistance - 1-2 x daily - 10-15 reps - Self-Resisted Ankle Dorsiflexion - 1-2 x daily - 10-15 reps - Seated Ankle Inversion with Resistance - 1-2 x daily - 10-15 reps - Seated Ankle Plantarflexion with Resistance - 2 x daily - 10-15 reps PT Treatment Times Therex Total Time 49 Direct Treatment Time 49 Total Treatment Time 49 Goals: Physical Therapy Ortho Goals: MOBILITY: Patient will be able to ambulate for 1 hour in community without difficulty in 4 weeks. MOBILITY: Patient will be able to ambulate on uneven surfaces without difficulty in 4 weeks. MOBILITY: Patient will be able to ascend/descend stairs reciprocally without difficulty in 4 weeks. IMPAIRMENT: Improve pain from 4/10 to <2/10 during prolonged walking and negotiating uneven surfaces in 4 weeks IMPAIRMENT: Improve AROM of Right Ankle Inversion and Eversion by at least 10 degrees in 4 weeks. OTHER: Patient will increase FOTO score from 55 to at least 65 to show MDC/MCII and expected functional outcome in 4 weeks. OTHER: Patient will be able to properly demonstrate independence with HEP in 1 week. Patient Education: Quality of movement with patient demonstrated understanding. Post-Treatment Pain Scale: 5 Assessment: Patient had an expected response to treatment. Skilled Intervention demonstrated by modifications of treatment per exercise log including increased load and safety interventions per exercise log. Progress towards goals as expected. Plan for Next Visit: Treatment Visit with focus on strengthening and stability progression Yohana Santos PTA STATE LICENSE, [id number] documented in this encounter [facility] 02-12-2023 History of Presen t illness Narrative Patient: Pietro Hendrix Date of : 1980 (42 y.o.) PCP: Rae Valverde MD Procedures ASSESSMENT/PLAN: Pietro Hendrix 42 y.o. female with history of healed avulsion fracture fragment of the right talus secondary to inversion ankle sprain. Plan: I prescribed physical therapy 3 times a week for 3 weeks to try to rehabilitate the right ankle . Patient was told to use her ankle brace. Also instructed her to take the Medrol Dosepak I prescribed for the pain and swelling. If no improvement and the next 30 days I recommend an MRI to see if there is been lateral ankle ligament damage that needs repaired. Assessment & plan notes cannot be loaded without a specified hospital service. SUBJECTIVE: History Since Last Visit: Patient 42-year-old female who presents to the office for follow-up of right lateral ankle inversion injury that resolved and a talar avulsion fracture fragment. Patient feels the fracture fragment is no longer causing her pain but she was concerned about some of the pain and swelling she was getting over her lateral ankle ligaments. Patient states she has been wearing her ankle brace and taking anti-inflammatories Review of Systems: OBJECTIVE: Physical Examination: Integument-skin is warm dry and supple on the right foot. Neuro-intact right foot Musculoskeletal-patient has some pain and swelling of the anterior talofibular and calcaneofibular ligaments of the right ankle. There is also some painful symptoms of the sinus tarsi of the right foot. Patient had no pain when I palpated the talar neck avulsion fracture fragment which appears to be healed on x-ray. Patient has no pain with passive ankle joint dorsiflexion and plantarflexion. Patient does have some pain when I forcibly invert the right ankle. Vascular-DP and PT pulses are palpable in the right foot. BP 101/71 (BP Location: Left arm, Patient Position: Sitting, BP Cuff Size: Adult) Pulse 88 Temp 98.1 F (36.7 C) (Infrared) LMP 02/01/2023 (Approximate) Laboratory and Additional Data Reviewed: Reviewed:[id number]} XR Foot Right 3+ Views (Standard) X-rays 3 views right foot: The avulsion fracture of the talar neck appears to be healed. No other fracture or dislocation noted. If further concern for ligament injury is needed an MRI would be recommended. documented in this encounter [facility] 01-01-2023 History of Presen t illness Narrative Patient: Pietro Hendrix Date of : 1980 (42 y.o.) PCP: Rae Valverde MD Procedures ASSESSMENT/PLAN: Pietro Hendrix 42 y.o. female with history of healing talar neck fracture of the right foot. Plan: I prescribed dispensed 1 stability ankle brace to be worn in her shoes on the right foot. Patient was told she would use the cam walker boot if on uneven terrain but can start driving with the ankle brace and shoe. Reappoint 2 weeks for x-rays Assessment & plan notes cannot be loaded without a specified hospital service. SUBJECTIVE: History Since Last Visit: Patient is a 42-year-old female seen at the office for a talar neck fracture of the right foot x5 weeks. Patient relates things have been doing pretty well with the cam walker boot. Review of Systems: OBJECTIVE: Physical Examination: Integument-skin is warm dry and supple on the right foot. Neuro-intact right foot Musculoskeletal-decreased pain and swelling over the lateral dorsal aspect of the right talar neck. Patient no pain over the medial side of the talus. Vascular-DP PT pulses are palpable on the right foot. BP 104/69 (BP Location: Right arm, Patient Position: Sitting, BP Cuff Size: Adult) Pulse 78 Temp 98.1 F (36.7 C) (Infrared) LMP 12/04/2022 (Approximate) Laboratory and Additional Data Reviewed: Reviewed:[id number]} XR Foot Right 3+ Views (Standard) Xray 3 views right foot- There is healing dorsal talar neck fracture documented in this encounter [facility] 12-11-2022 History of Presen t illness Narrative Patient: Pietro Hendrix Date of : 1980 (41 y.o.) PCP: Rae Valverde MD Procedures ASSESSMENT/PLAN: Pietro Hendrix 41 y.o. female with history of dorsal talar neck avulsion fracture fragment slow to heal in the right foot. Plan: Patient was told to continue with her cam walker boot and Tal bandage on the right foot. 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 Patient to reappoint 2 weeks for x-rays Assessment & plan notes cannot be loaded without a specified hospital service. SUBJECTIVE: History Since Last Visit: Patient 41-year-old female follows up for right inversion ankle injury that resulted in avulsion fracture fragment of dorsal talar head. Patient relates the swelling and pain have improved since she was here 2 weeks ago. 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 Review of Systems: OBJECTIVE: Physical Examination: Integument-skin is warm dry and supple on the right ankle. The ecchymosis has decreased since last time I saw her. Neuro-intact right foot Musculoskeletal-decreased pain and swelling over the talar neck of the right ankle. Patient has some pain of the anterior talofibular ligament and calcaneofibular limits. Patient no pain with passive ankle joint range of motion. No pain behind the right calf today. Vascular-DP and PT pulses are palpable right foot. BP 102/71 (BP Location: Right arm, Patient Position: Sitting, BP Cuff Size: Adult) Pulse 77 Temp 98.7 F (37.1 C) (Infrared) LMP 12/04/2022 (Approximate) Laboratory and Additional Data Reviewed: Reviewed:[id number]} XR Foot Right 3+ Views (Standard) Xray 3 views -there is a partial united avulsion fracture right dorsal talus documented in this encounter [facility] 11-27-2022 History of Presen t illness Narrative Patient Name: Pietro Hendrix MR #: [id number] : 1980 Gender: female. Date of Consultation: 11/27/2022. Author: MARIA D Hill Physicians: Rae Valverde MD (Family); No ref. provider found (Referring) History of Present Illness: Pietro Hendrix is a 41 y.o. female who presents with pain and swelling over her right ankle after falling off the bleachers yesterday. 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 Patient placed herself in a boot after the injury and came in for x-rays today. Patient's been taking Motrin and Tylenol for the pain. Assessment and Plan: 1. 1. Avulsion fracture of right talus with routine healing Plan: Patient was seen and evaluated. I discussed the findings with the patient. Patient was given opportunity to ask questions. Patient elects to have the following treatment as follows: I prescribed and dispensed 1 Airc[employer] cam walker boot with an Tal bandage to assist in ambulation for the right foot. I recommend patient use some crutches for assistance. Heel weightbearing only. Patient was told to rest ice and elevate the right foot. I explained to patient that we will try to heal this fracture fragment conservatively but if things do not heal after 6 weeks or there is displacement of the fracture fragment it may need to be surgically excised. Reappoint in 2 weeks for x-rays of the right foot Lower Extremity: Integumentary: Ecchymosis and swelling over the dorsal lateral aspect of the right talar neck and head. Musculoskeletal: Patient has a acute pain and swelling over the dorsal lateral aspect of the right talar neck. Patient also has some pain over the anterior talofibular and calcaneofibular ligaments of the right ankle. Patient had no pain over the base the fifth metatarsal or anterior process of the calcaneus. Patient had no pain with the distal tib-fib syndesmosis or deltoid ligament. No pain behind the right calf. Neurological: sensation intact Vascular: DP and PT pulses are 2 out of 4 right foot. * No LDAs found * BP 116/78 (BP Location: Left arm, Patient Position: Sitting, BP Cuff Size: Adult) Pulse 98 Temp 98.1 F (36.7 C) (Infrared) LMP 11/01/2022 (Approximate) Allergy Information: I have reviewed the patient's allergies. Patient has no known allergies. Home Medications: Current Outpatient Medications Medication Sig Dispense Refill ibuprofen (ADVIL,MOTRIN) 200 MG tablet Take 1 (one) tablet (200 mg total) by mouth every 6 (six) hours as needed for pain . No current facility-administered medications for this visit. Review of Systems: The following system(s) were reviewed and pertinent findings noted: Pertinent positives and negatives as mentioned above, otherwise full review of systems is negative unless mentioned below: Patient currently denies Nausea/Vomiting/Fever/Chills/Shortness of Breath/Chest Pain. Medical History: History reviewed. No pertinent past medical history.. Surgical History: Past Surgical History: Procedure Laterality Date TONSILLECTOMY . Social History: Social History Socioeconomic History Marital status: Tobacco Use Smoking status: Never Smokeless tobacco: Never Vaping Use Vaping Use: Never used Substance and Sexual Activity Alcohol use: Yes Comment: occasionally Drug use: Never Family History: History reviewed. No pertinent family history. Electronically signed by the above physician 11/27/22 documented in this encounter [facility] Avulsion fracture of right talus with routine healing- Primary Inversion sprain of ankle, right, sequela Sprain of anterior talofibular ligament of right ankle, sequela [facility] Diagnosis Closed displaced avulsion fracture of right talus, initial encounter- Primary Inversion sprain of right ankle, initial encounter Sprain of anterior talofibular ligament of right ankle, initial encounter [facility] Diagnosis Closed displaced avulsion fracture of right talus, initial encounter- Primary Inversion sprain of right ankle, initial encounter Sprain of anterior talofibular ligament of right ankle, initial encounter [facility] Diagnosis Closed displaced avulsion fracture of right talus with routine healing, subsequent encounter- Primary Inversion sprain of right ankle, subsequent encounter Sprain of anterior talofibular ligament of right ankle, subsequent encounter [facility] Diagnosis Closed displaced avulsion fracture of right talus with routine healing, subsequent encounter- Primary Inversion sprain of right ankle, subsequent encounter Sprain of anterior talofibular ligament of right ankle, subsequent encounter [facility] Diagnosis Closed displaced avulsion fracture of right talus, initial encounter- Primary Inversion sprain of right ankle, initial encounter Sprain of anterior talofibular ligament of right ankle, initial encounter [facility] Diagnosis Inversion sprain of ankle, right, sequela- Primary Avulsion fracture of right talus with routine healing [facility] Diagnosis Closed displaced avulsion fracture of right talus, initial encounter- Primary Inversion sprain of right ankle, initial encounter Sprain of anterior talofibular ligament of right ankle, initial encounter documented in this encounter [facility] Reason for Referral Specialty Diagnoses / Procedures Referred By Zen [employer] Referred To Contact Rehabilitation Diagnoses Avulsion fracture of right talus with routine healing Inversion sprain of ankle, right, sequela Sprain of anterior talofibular ligament of right ankle, sequela Siobhan Wolfe, BLANCHE [address] [place] [address] [facility] [address] [place] [address] Referral ID Status Reason Start Date Expiration Date V isits Requested Visits Authorized [id number] Authorized 02/12/2023 02/12/2024 1 1 Summary Purpose Family History No Family History Records FoundNo Family History Records Found Advance Directives No Advanced Directives Records FoundNo Advanced Directives Records Found Additional Source Comments Reason for Visit (unrecogniz ed section and content) Reason Comments Follow-up Follow up x-ray righ t foot talus fracture. Patient is having burning pain at night on top of her foot. Reason Comments Follow-up R foot talus fx - re peat xrays today - pt is doing well Reason Comments Follow-up Follow up x-rays rig ht foot fracture. Patient has had swelling since she stopped wearing the boot. Reason Comments Physical Therapy Specialty Diagnoses / Procedures Referred By Zen hdz Referred To Contact Rehabilitation Diagnoses Avulsion fracture of right talus with routine healing Inversion sprain of ankle, right, sequela Sprain of anterior talofibular ligament of right ankle, Siobhan Ceja DPM [address] [place] [address] [facility] [place] [address] [place] [address] Referral ID Status Reason Start Date Expiration Date V isits Requested Visits Authorized [id number] Authorized 02/12/2023 02/12/2024 7 7 Reason Comments Follow-up Johnathan pierce fx - pt has been doing PT and is doing well Referral ID Status Reason Start Date Expiration Date Visits Re quested Visits Authorized [id number] Closed 02/12/2023 02/12/2024 7 7 Care Teams (unrecognized sec tion and content) Bonding Molder Relationship Specialty Start Date End Date Rae Valverde MD [address] [place] [address] PCP - General Family Medicine 11/27/22 Bonding Molder Relationship Specialty Start Date End Date Rae Valverde MD [address] [place] [address] PCP - General Family Medicine 11/27/22 Bonding Molder Relationship Specialty Start Date End Date Rae Valverde MD [address] [place] [address] PCP - General Family Medicine 11/27/22 Bonding Molder Relationship Specialty Start Date End Date Rae Valverde MD [address] [place] [address] PCP - General Family Medicine 11/27/22 Bonding Molder Relationship Specialty Start Date End Date Rae Valverde MD [address] [place] [address] PCP - General Family Medicine 11/27/22 Bonding Molder Relationship Specialty Start Date End Date Rae Valverde MD [address] [place] [address] PCP - General Family Medicine 11/27/22 Bonding Molder Relationship Specialty Start Date End Date Rae Valverde MD [address] [place], [place] [id number] PCP - General Family Medicine 11/27/22 Bonding Molder Relationship Specialty Start Date End Date Rae Valverde MD [address] [facility] [address] [place], [place] [id number] PCP - General Family Medicine 11/27/22 INFORMATION SOURCE (unrecogn ized section and content) DATE CREATED AUTHOR AUTHOR'S ORGANIZ ATION 03/22/2023 [facility] FOR RECORDS PERTAINING TO PATIENTS WHO ARE OR HAVE BEEN ENROLLED IN A CHEMICAL DEPENDENCY/SUBSTANCEABUSE PROGRAM, SOME INFORMATION MAY BE OMITTED. This clinical summary was aggregated from multiple sources. Caution should be exercised in using it in the provision of clinical care. This summary normalizes information from multiple sources, and as a consequence, information in this document may materially change the coding, format and clinical context of patient data. In addition, data may be omitted in some cases. CLINICAL DECISIONS SHOULD BE BASED ON THE PRIMARY CLINICAL RECORDS. [employer] provides no warranty or guarantee of the accuracy or completeness of information in this document.
[2023-04-20 13:08] LABS: Anion Gap 4 (5-15); BUN 14 mg/dL (7-18); BUN/Creat Ratio 17.8 RATIO (10-20); Calcium,Total 8.8 mg/dL (8.5-10.1); Chloride 112 mmol/L (98-107); Cholesterol 199 mg/dL (200); Creatinine, Serum 0.79 mg/dL (0.55-1.02); EST Glomerular Filtration Rate 85 mL/min (>60); Est Glom Filt Rate - Afr Amer 103 mL/min (>60); Glucose 88 mg/dL (74-106); High Density Lipoprotein 64 mg/dL; Sodium Level 141 mmol/L (136-145); Thyroid Stim Hormone (TSH) 0.97 uIU/mL (0.358-3.74); Triglycerides 47 mg/dL; Very Low Density Lipoprotein 9 mg/dL (5-40)
== END | disposition home or self-care (01) ==
LOC: MFPLAB 10:19
PROVIDERS: PCP Family Medicine; Visit Provider Family Medicine
DX: Z00.00 Encounter for general adult medical examination without abnormal findings (principal); F41.1 Generalized anxiety disorder
CPT/HCPCS: 36415; 80048; 80061; 84443

== ENCOUNTER → 2023-06-23 | Outpatient (CLI) | payer BC, SELFPAY ==
--- NOTE | 2023-06-23 16:47 | BI_ITS ---
MAMMOGRAPHY - BILATERAL SCREENING REASON FOR EXAM: Female, 42 years old. Routine annual screening examination. PERTINENT HISTORY: Non-contributory. TECHNIQUE: Digital bilateral breast paula (3D mammographic acquisition) in the CC and MLO projections. 2-D mediolateral oblique (MLO) and craniocaudad (CC) views of both breasts were obtained. CAD: Full Field Digital Mammography with Computer Added Detection was performed. COMPARISON: Comparison is made with prior study dated May 09, 2022. FINDINGS: Breast Composition: The breasts are heterogeneously dense, which may obscure small masses. There is a 1.1 cm x 2.2 cm nodular density in the deep upper lateral aspect of the right breast. Correlation with ultrasound is recommended. No other significant abnormalities are identified. BI/SCRN MAMM (CAD)W/PAULA BILAT IMPRESSION: 1.1 cm x 2.2 cm nodular density in the deep upper lateral aspect of the right breast as described. Correlation with ultrasound is recommended. ASSESSMENT CATEGORY: BIRADS Category 0: Incomplete. Need additional imaging evaluation. A letter regarding these results will be sent to the patient by the facility within 30 days. Approximately 10% of breast cancers are not detected by mammography. A normal mammogram should not delay biopsy of a clinically suspicious abnormality. [id number] Electronically Signed: Candido Yip MD at 10:08 EDT ,
== END | disposition home or self-care (01) ==
PROVIDERS: PCP Family Medicine; Referring Provider Family Medicine; Visit Provider Family Medicine
DX: Z12.31 Encounter for screening mammogram for malignant neoplasm of breast (principal)
CPT/HCPCS: 77063; 77067

== ENCOUNTER → 2023-06-26 | Outpatient (CLI) | payer BC, SELFPAY ==
--- NOTE | 2023-06-26 07:51 | US_ITS ---
STUDY: ULTRASOUND BREAST - RIGHT REASON FOR EXAM: Female, 42 years old. Abnormal screening mammogram. TECHNIQUE: Axial and longitudinal images of the RIGHT breast were performed with a high resolution ultrasound transducer. # OF IMAGES: 41 COMPARISON: Comparison is made with prior mammogram dated June 23, 2023. FINDINGS: RIGHT Breast: At the 9:00 position of the breast at 5 cm from the nipple, there is a 1.2 cm x 1.3 cm x 0.6 cm simple cyst. Adjacent to this, there is evidence of a 5 mm x 4 mm x 3 mm cyst. US/Breast Limited Unilateral IMPRESSION: The mammographic abnormality corresponds to 1.2 cm x 1.3 cm x 0.6 cm cyst. Adjacent 5 mm x 4 mm x 3 mm simple cyst. ASSESSMENT CATEGORY: BIRADS Category 2: Benign. A letter regarding these results will be sent to the patient by the facility within 30 days. Electronically Signed: Candido Yip MD at 8:56 EDT ,
== END | disposition home or self-care (01) ==
PROVIDERS: PCP Family Medicine; Referring Provider Family Medicine; Visit Provider Family Medicine
DX: R92.30 Dense breasts, unspecified (principal)
CPT/HCPCS: 76642

== ENCOUNTER → 2024-05-30 | Outpatient (CLI) | payer BC, SELFPAY ==
[2024-06-06 11:08] LABS: HPV APTIMA, High Risk Negative (Negative)
[2024-06-06 15:13] LABS: HPV Reflexed? YES, CHARGE PATIENT
== END | disposition home or self-care (01) ==
LOC: LABSPEC 08:51
PROVIDERS: PCP Family Medicine; Visit Provider Nurse Practitioner Family
DX: Z12.4 Encounter for screening for malignant neoplasm of cervix (principal)
CPT/HCPCS: 87624; 88175; G0145

== ENCOUNTER → 2024-05-30 | Outpatient (CLI) | payer BC, OTHER, SELFPAY ==
--- NOTE | 2024-05-30 10:15 | BI_ITS ---
EXAM: SCRN MAMM (CAD)W/PAULA BILAT 05/30/2024 CLINICAL HISTORY: F, Age 43 y/o , SCREENING TECHNIQUE: Bilateral Diagnostic digital breast tomosynthesis with 2D and 3D images. Computer aided detection. COMPARISON: Prior exam(s) dated 06/23/2023. FINDINGS: TISSUE DENSITY: The breast tissue is composed of scattered area of fibroglandular density. Bilateral Breast Mammographic Findings: There are no suspicious masses, suspicious cluster of microcalcifications, architectural distortion or secondary signs of malignancy identified in either breast. BI/SCRN MAMM (CAD)W/PAULA BILAT IMPRESSION: Right Breast: BIRADS 1 NEGATIVE. Left Breast: BIRADS 1 NEGATIVE. OVERALL FINAL ASSESSMENT: BIRADS 1 NEGATIVE. RECOMMENDATION: Routine annual follow-up in 1 Year A letter with findings and recommendations will be mailed to the patient. Reading Location: [id number]
== END | disposition home or self-care (01) ==
PROVIDERS: PCP Family Medicine; Referring Provider Family Medicine; Visit Provider Family Medicine
DX: Z12.31 Encounter for screening mammogram for malignant neoplasm of breast (principal)
CPT/HCPCS: 77063; 77067